=== PATIENT | female | born 1945 | race Caucasian/White ===

== ENCOUNTER 2020-07-06 13:26 | Outpatient (CLI) | payer MEDICARE, OTHER ==
[~2020-07-06] VITALS: Ht 154.9 cm; Wt 63.6 kg
[2020-07-06 13:43] VITALS: BP 121/75; Ht 154.9 cm; Wt 63.6 kg
== END 2020-07-06 14:16 | disposition home or self-care (01) ==
LOC: D.OPS 13:26
PROVIDERS: ATTEND Family Medicine
DX: M81.0 Age-related osteoporosis without current pathological fracture (principal)